=== PATIENT | female | born 1945 | race Hispanic/Latino ===

== ENCOUNTER → 2018-11-28 | Outpatient (CLI) | payer OTHER | END | disposition home or self-care (01) | LOC: RAH 09:02 | PROVIDERS: ATTEND Family Medicine | DX: Z12.31 Encounter for screening mammogram for malignant neoplasm of breast (principal) | CPT/HCPCS: 77067 ==

== ENCOUNTER → 2020-05-15 | Outpatient (CLI) | payer OTHER | END | disposition home or self-care (01) | LOC: RAH 10:36 | PROVIDERS: ATTEND Family Medicine | DX: Z12.31 Encounter for screening mammogram for malignant neoplasm of breast (principal); N64.89 Other specified disorders of breast | CPT/HCPCS: 77067 ==

== ENCOUNTER → 2021-10-21 | Outpatient (CLI) | payer OTHER | END | disposition home or self-care (01) | LOC: RAH 12:27 | PROVIDERS: ATTEND Family Medicine | DX: Z12.31 Encounter for screening mammogram for malignant neoplasm of breast (principal); R92.1 Mammographic calcification found on diagnostic imaging of breast | CPT/HCPCS: 77067 ==

== ENCOUNTER 2022-07-22 00:21 | Emergency (ER) | payer OTHER ==
[~2022-07-22] VITALS: Ht 157.5 cm; Wt 45.4 kg
[2022-07-22 01:14] LABS: BASOPHILS % (AUTO) 0.5 % (0.0-5.0); EOSINOPHILS % (AUTO) 0.5 % (0.0-8.0); HEMATOCRIT 25.5 % (36-48); LYMPHOCYTES % (AUTO) 8.7 % (21.0-51.0); MEAN CORPUSCULAR HEMOGLOBIN 30.4 pg (27.0-33.0); MEAN CORPUSCULAR HGB CONC 32.5 g/dL (32.0-36.0); MEAN CORPUSCULAR VOLUME 93.4 fL (79-99); MONOCYTES % (AUTO) 4.5 % (3.0-13.0); NEUTROPHILS % (AUTO) 85.3 % (40.0-77.0); PLATELET COUNT (AUTO) 338 K/uL (130-400); RED BLOOD CELL COUNT(AUTO) 2.73 MIL/uL (4.00-5.50); RED CELL DISTRIBUTION WIDTH 16.2 % (11.0-15.5); WHITE BLOOD COUNT (AUTO) 13.1 K/uL (4.8-10.8)
[2022-07-22 01:21] LABS: CREATININE 1.5 mg/dL (0.5-1.5); POTASSIUM 3.4 mmol/L (3.5-5.1)
[2022-07-22 01:26] LABS: ALBUMIN 3.1 g/dL (3.5-5.0); TOTAL PROTEIN, SERUM 6.4 g/dL (6.0-8.3)
[2022-07-22 01:33] LABS: APPEARANCE,URINE CLEAR (CLEAR); BILIRUBIN,URINE NEGATIVE (NEGATIVE); COLOR,URINE LIGHT-YELLOW (YELLOW); GLUCOSE, URINE (UA) NEGATIVE (NEGATIVE); KETONES,URINE 5 mg/dL (NEGATIVE); LEUKOCYTE ESTERASE ,URINE NEGATIVE Leu/uL (NEGATIVE); NITRATE,URINE NEGATIVE (NEGATIVE); OCCULT BLOOD,URINE NEGATIVE (NEGATIVE); PROTEIN,URINE 20 mg/dL (NEGATIVE); UROBILINOGEN,URINE 0.2 mg/dL (0.2-1.0)
[2022-07-22 01:36] LABS: MUCUS,URINE RARE LPF (None Seen); RBC,URINE 0-1 /HPF (0-1); SQUAMOUS EPITHELIAL CELL,UR RARE /HPF (0-2)
[2022-07-22] MEDS ORDERED: ONDANSETRON 4MG INJ IVP ONE (02:30)
[2022-07-22 04:46] VITALS: BP 138/44
[2022-07-22] MEDS ORDERED: FAMO-136 PO (06:07)
[2022-07-22] MEDS ORDERED: ONDA22I IM (06:07)
== END 2022-07-22 06:26 | disposition home or self-care (01) ==
LOC: EDH 00:21
DX: A08.4 Viral intestinal infection, unspecified (principal); K29.70 Gastritis, unspecified, without bleeding; E11.9 Type 2 diabetes mellitus without complications; E78.00 Pure hypercholesterolemia, unspecified; I10 Essential (primary) hypertension; Z86.73 Personal history of transient ischemic attack (TIA), and cerebral infarction without residual deficits
CPT/HCPCS: 99284; 96374; 84484; 80053; 83690; 85025; 81001; 36415; 93005; J2405

== ENCOUNTER → 2022-07-28 | Outpatient (CLI) | payer OTHER ==
[~2022-07-28] MED LIST: FAMO-136 PO; ONDA22I IM
== END | disposition home or self-care (01) ==
LOC: RAH 11:07
PROVIDERS: ATTEND Family Medicine
DX: I65.23 Occlusion and stenosis of bilateral carotid arteries (principal)
CPT/HCPCS: 93880

== ENCOUNTER → 2023-01-15 | Outpatient (CLI) | payer OTHER | END | disposition home or self-care (01) | LOC: RAH 13:44 | PROVIDERS: ATTEND Family Medicine | DX: Z12.31 Encounter for screening mammogram for malignant neoplasm of breast (principal) | CPT/HCPCS: 77067 ==

== ENCOUNTER → 2023-02-20 | Outpatient (CLI) | payer OTHER | END | disposition home or self-care (01) | LOC: SHCH 13:35 | PROVIDERS: ATTEND Internal Medicine Cardiovascular Disease | DX: I08.3 Combined rheumatic disorders of mitral, aortic and tricuspid valves (principal) | CPT/HCPCS: 93306 ==

== ENCOUNTER → 2023-02-26 | Outpatient (CLI) | payer OTHER | END | disposition home or self-care (01) | LOC: RAH 11:05 | PROVIDERS: ATTEND Internal Medicine Cardiovascular Disease | DX: R93.1 Abnormal findings on diagnostic imaging of heart and coronary circulation (principal); I25.10 Atherosclerotic heart disease of native coronary artery without angina pectoris | CPT/HCPCS: 75571 ==

== ENCOUNTER → 2023-02-27 | Outpatient (CLI) | payer OTHER | END | disposition home or self-care (01) | LOC: SHCH 14:31 | PROVIDERS: ATTEND Internal Medicine Cardiovascular Disease | DX: I65.23 Occlusion and stenosis of bilateral carotid arteries (principal) | CPT/HCPCS: 93880 ==

== ENCOUNTER 2023-06-11 10:05 | Observation (INO) | payer OTHER ==
[~2023-06-11] VITALS: Ht 157.5 cm; Wt 48.5 kg
[2023-06-11 11:05] LABS: BASOPHILS # (AUTO) 0.04 K/uL (0.00-0.20); BASOPHILS % (AUTO) 0.5 % (0.0-5.0); EOSINOPHILS # (AUTO) 0.18 K/uL (0.00-0.70); EOSINOPHILS % (AUTO) 2.1 % (0.0-8.0); IMMATURE GRANULOCYTE ABSOLUTE 0.03 K/uL (0-1); LYMPHOCYTES # (AUTO) 1.1 K/uL (1.0-4.8); LYMPHOCYTES % (AUTO) 13.2 % (21.0-51.0); MEAN CORPUSCULAR HEMOGLOBIN 30.6 pg (27.0-33.0); MEAN CORPUSCULAR HGB CONC 31.9 g/dL (32.0-36.0); MEAN CORPUSCULAR VOLUME 95.9 fL (79-99); MONOCYTES # (AUTO) 0.7 K/uL (0.1-1.0); MONOCYTES % (AUTO) 7.6 % (3.0-13.0); NEUTROPHILS # (AUTO) 6.5 K/uL (1.8-7.7); NEUTROPHILS % (AUTO) 76.2 % (40.0-77.0); PLATELET COUNT (AUTO) 297 K/uL (130-400); RED BLOOD CELL COUNT(AUTO) 1.93 MIL/uL (4.00-5.50); RED CELL DISTRIBUTION WIDTH 15.5 % (11.0-15.5); WHITE BLOOD COUNT (AUTO) 8.6 K/uL (4.8-10.8)
[2023-06-11 11:17] LABS: CREATININE 1.4 mg/dL (0.5-1.5); POTASSIUM 4.8 mmol/L (3.5-5.1)
[2023-06-11 11:21] LABS: HEMATOCRIT 18.5 % (36-48)
[2023-06-11 11:22] LABS: ALBUMIN 2.6 g/dL (3.5-5.0); BILIRUBIN,TOTAL 0.8 mg/dL (0.2-1.0); TOTAL PROTEIN, SERUM 6.1 g/dL (6.0-8.3)
[2023-06-11] MEDS ORDERED: MEMA5TAB42 PO (12:41)
[2023-06-11] MEDS ORDERED: FOLI1 PO (12:41)
[2023-06-11] MEDS ORDERED: ATOR40TA69 PO (12:41)
[2023-06-11] MEDS ORDERED: CARV25TA PO (12:41)
[2023-06-11] MEDS ORDERED: FLUO40CA49 PO (12:41)
[2023-06-11] MEDS ORDERED: LACTULOSE 20 GM/30 ML UDCUP PO PRN (14:30)
[2023-06-11] MEDS ORDERED: LIDOCAINE HCL 2% VISCOUS 30 ML, MAG/ALUM/SIMETH 30ML 30 ML, DICYCLOMINE HCL 20 MG PO PRN ×3 (14:30)
[2023-06-11] MEDS ORDERED: LOPERAMIDE HCL 2 MG CAP PO PRN (14:30)
[2023-06-11] MEDS ORDERED: DIPHENHYDRAMINE HCL 25 MG CAPSULE PO PRN (14:30)
[2023-06-11] MEDS ORDERED: MAGNESIUM 2GM PREMIX 50ML 50 ML IV PRN (14:30)
[2023-06-11] MEDS ORDERED: GUAIFENESIN SUGAR-FREE 100 MG/5 ML UDCUP PO PRN (14:30)
[2023-06-11] MEDS ORDERED: POTASSIUM CHLORIDE 10% ELIXIR 20 MEQ/15 ML UDCUP PO PRN (14:30)
[2023-06-11] MEDS ORDERED: DEXTROSE 50%-WATER 50 ML DISP.SYRIN IV PRN (14:30)
[2023-06-11] MEDS ORDERED: DOCUSATE SODIUM 100 MG CAP PO PRN (14:30)
[2023-06-11] MEDS ORDERED: NITROGLYCERIN 0.4 MG SL TAB SL PRN (14:30)
[2023-06-11] MEDS ORDERED: KCL 20 MEQ ERTAB PO PRN (14:30)
[2023-06-11] MEDS ORDERED: ALPRAZOLAM 0.5 MG TABLET PO PRN (14:30)
[2023-06-11] MEDS ORDERED: ACETAMINOPHEN 325 MG TAB PO PRN ×2 (14:30)
[2023-06-11] MEDS ORDERED: ZOLPIDEM TARTRATE 5 MG TAB PO PRN (14:30)
[2023-06-11] MEDS ORDERED: ARTIFICAL TEARS SOL 15 ML OP PRN (14:30)
[2023-06-11] MEDS ORDERED: ONDANSETRON 4MG INJ IV PRN (14:30)
[2023-06-11] MEDS ORDERED: BENZOCAINE/MENTH/CETYLPYRD CL 1 EACH LOZENGE MM PRN (14:30)
[2023-06-11] MEDS ORDERED: GUAIFENESIN-DM 200/20 MG 10 ML PO PRN (14:30)
[2023-06-11] MEDS ORDERED: GLUCAGON 1MG KIT 1 MG ML IM PRN (14:30)
[2023-06-11] MEDS ORDERED: POTASSIUM CHLORIDE 20MEQ/100ML 100 ML IV PRN (14:30)
[2023-06-11] MEDS ORDERED: MAG/ALUM/SIMETH 30 ML UDCUP PO PRN (14:30)
[2023-06-11] MEDS ORDERED: POLYETHYLENE GLYCOL 3350 17 GM POWD.PACK PO PRN (14:30)
[2023-06-11] MEDS ORDERED: COMPOUND PO MISCELLANEOUS 1 EACH MISC MISC PRN (15:30)
[2023-06-11 16:00] VITALS: BP 113/47; PULSE 82; RESP 20
[2023-06-11 19:50] LABS: HEMATOCRIT 26.9 % (36-48)
[2023-06-11 20:00] VITALS: BP 156/43; PULSE 90; RESP 20
[2023-06-11] MEDS ORDERED: FAMOTIDINE 20MG TAB PO SCH (21:00)
[2023-06-12] VITALS: BP 161/42; PULSE 76; RESP 18
[2023-06-12 04:00] VITALS: BP 158/46; PULSE 69; RESP 16
[2023-06-12 05:13] LABS: HEMATOCRIT 26.2 % (36-48)
[2023-06-12 07:59] VITALS: BP 148/39; PULSE 70; RESP 16
[2023-06-12 08:00] VITALS: O2SAT 96
[2023-06-12 08:10] LABS: HEMATOCRIT 27.7 % (36-48)
[2023-06-12] MEDS ORDERED: PANTOPRAZOLE 40 MG TAB DR PO SCH (09:00)
[2023-06-12 11:32] VITALS: BP 140/52; PULSE 72; RESP 18
[2023-06-12] MEDS ORDERED: FAMOTIDINE 20MG TAB PO SCH (21:00)
[2023-06-12] MEDS ORDERED: MEMANTINE HCL 5 MG TABLET PO SCH (21:00)
[2023-06-13] MEDS ORDERED: FOLIC ACID 1 MG TABLET PO SCH (09:00)
[2023-06-13] MEDS ORDERED: CARVEDILOL 25 MG TABLET PO SCH (09:00)
[2023-06-13] MEDS ORDERED: FLUOXETINE HCL 20 MG CAPSULE PO SCH (09:00)
[2023-06-13] MEDS ORDERED: ATORVASTATIN 40 MG TABLET PO SCH (09:00)
== END 2023-06-12 16:50 | disposition home or self-care (01) ==
LOC: EDH 10:05 → EDHIP 14:04 → 3AH 15:25
PROVIDERS: ADMIT Internal Medicine Critical Care Medicine; ATTEND Internal Medicine Critical Care Medicine
DX: S30.0XXA Contusion of lower back and pelvis, initial encounter (principal); D64.9 Anemia, unspecified; I12.9 Hypertensive chronic kidney disease with stage 1 through stage 4 chronic kidney disease, or unspecified chronic kidney disease; E11.22 Type 2 diabetes mellitus with diabetic chronic kidney disease; N18.9 Chronic kidney disease, unspecified; E78.00 Pure hypercholesterolemia, unspecified; Z86.73 Personal history of transient ischemic attack (TIA), and cerebral infarction without residual deficits; W19.XXXA Unspecified fall, initial encounter; Y93.89 Activity, other specified; Y92.89 Other specified places as the place of occurrence of the external cause; Y99.8 Other external cause status
CPT/HCPCS: 36430; 99284; 80053; 85025; 85014 ×3; 85018 ×3; 86850; 86900; 86901; 86923 ×2; 36415 ×2; 74176; G0378 ×23; P9016 ×2

== ENCOUNTER → 2024-03-31 | Outpatient (CLI) | payer OTHER ==
[~2024-03-31] MED LIST changes: +ATOR40TA69 PO; +CARV25TA PO; +FLUO40CA49 PO; +FOLI1 PO; +MEMA5TAB16 PO
== END | disposition home or self-care (01) ==
LOC: RAH 11:29
PROVIDERS: ATTEND Family Medicine
DX: Z12.31 Encounter for screening mammogram for malignant neoplasm of breast (principal); R92.30 Dense breasts, unspecified
CPT/HCPCS: 77067

== ENCOUNTER 2024-09-28 12:21 | Observation (INO) | payer OTHER ==
[~2024-09-28] VITALS: Ht 157.5 cm; Wt 59.0 kg
[2024-09-28 13:17] LABS: BASOPHILS # (AUTO) 0.05 K/uL (0.00-0.20); BASOPHILS % (AUTO) 0.6 % (0.0-5.0); EOSINOPHILS # (AUTO) 0.22 K/uL (0.00-0.70); EOSINOPHILS % (AUTO) 2.5 % (0.0-8.0); HEMATOCRIT 30.3 % (36-48); IMMATURE GRANULOCYTE ABSOLUTE 0.02 K/uL (0-1); LYMPHOCYTES # (AUTO) 2.3 K/uL (1.0-4.8); LYMPHOCYTES % (AUTO) 26.4 % (21.0-51.0); MEAN CORPUSCULAR HEMOGLOBIN 31.5 pg (27.0-33.0); MEAN CORPUSCULAR VOLUME 98.4 fL (79-99); MONOCYTES # (AUTO) 0.7 K/uL (0.1-1.0); MONOCYTES % (AUTO) 7.8 % (3.0-13.0); NEUTROPHILS # (AUTO) 5.6 K/uL (1.8-7.7); NEUTROPHILS % (AUTO) 62.5 % (40.0-77.0); PLATELET COUNT (AUTO) 278 K/uL (130-400); RED BLOOD CELL COUNT(AUTO) 3.08 MIL/uL (4.00-5.50); RED CELL DISTRIBUTION WIDTH 16.1 % (11.0-15.5); WHITE BLOOD COUNT (AUTO) 8.9 K/uL (4.8-10.8)
[2024-09-28 13:24] LABS: CARBON DIOXIDE 31 mmol/L (21-32); CHLORIDE 106 mmol/L (101-111); CREATININE 1.3 mg/dL (0.5-1.0); GLOMERULAR FILTR. RATE CALC 42 mL/min (>90); GLUCOSE,RANDOM 107 mg/dL (70-105); POTASSIUM 4.7 mmol/L (3.5-5.1); SODIUM SERUM 141 mmol/L (136-145); UREA NITROGEN, BLOOD 25 mg/dL (7-18)
[2024-09-28 13:29] LABS: AMMONIA < 10 umol/L (11-32)
[2024-09-28 13:32] LABS: CREATINE KINASE, TOTAL 20 U/L (21-232)
--- NOTE | 2024-09-28 13:35 | HMCIMG ---
Exam Type: CT HEAD/BRAIN W/O CONTRAST Clinical Information: weakness Comparison: None CT Dose Index (CTDI): 57.33 mGy Dose Length Product (DLP): 956.79 total mGy-cm Findings: The examination shows atrophy. There is low attenuation throughout the periventricular white matter locations, consistent with chronic small vessel ischemic changes. In addition, there is is evidence of an old infarct manifesting as encephalomalacia of the left parietal lobe. No acute intra- or extra-axial fluid collections are seen. There is no evidence of acute or chronic hemorrhage. There is no mass effect or shift of midline structures. The skull windows show no significant abnormalities. IMPRESSION: 1. ATROPHY AND CHRONIC ISCHEMIC CHANGES. This study was performed using dose reduction techniques to include automated exposure control and/or adjustment of the mA and/or kV according to patient size.
--- NOTE | 2024-09-28 13:39 | EKG ---
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
[2024-09-28 14:01] LABS: B-TYPE NATRIURETIC PEPTIDE 214 pg/mL (0-100)
--- NOTE | 2024-09-28 15:23 | ERN ---
General Chief Complaint: Weakness Stated Complaint: GBW Time Seen by MD: 12:53 History of Present Illness Initial Comments 78-year-old female who presents for weakness. Patient is wheelchair-bound due to a stroke in the past. Usually she was able to move around to the restroom, but the daughter reports today she reports extreme fatigue and weakness. No fevers vomiting diarrhea dysuria or other symptoms. Allergies: Coded Allergies: No Known Allergies (Unverified Allergy, Unknown, 07/22/22) Home Meds Active Scripts Ondansetron HCl (Zofran) 2 Mg/Ml Inj, 4 MG IM BID for 2 Days, #4 ML Prov:JORGE CHURCH MD 07/22/22 Famotidine (Pepcid) 20 Mg Tablet, 20 MG PO BID for 30 Days, #60 TAB Prov:JORGE CHURCH MD 07/22/22 Reported Medications Carvedilol (Carvedilol) 25 Mg Tablet, 25 MG PO DAILY, TAB 06/11/23 Atorvastatin Calcium (LIPITOR) 40 Mg Tablet, 40 MG PO DAILY, TAB 06/11/23 Fluoxetine HCl (Fluoxetine HCl) 40 Mg Capsule, 40 MG PO DAILY, CAP 06/11/23 Folic Acid (Folvite) 1 Mg Tab, 1 MG PO DAILY, TAB 06/11/23 Memantine HCl (Memantine HCl) 5 Mg Tablet, 5 MG PO BID, TAB 06/11/23 Past Medical History Past Medical History: CVA, Diabetes-Type II, High Cholesterol, Hypertension, Stroke Past Surgical History: None Surgical History Other: LUMPECTOMY, EYE SURGERY, CAROIDECTOMY Social History Social History: Negative, Lives with family, Other ROS Dictation CONSTITUTIONAL: Weakness and fatigue and malaise HEAD/FACE: No signs of trauma. EENT: No eye pain, no blurred vision, no tearing, no double vision, no ear pain, no ear discharge, no nose pain, no nasal congestion, no throat pain, no throat swelling, no mouth pain. RESPIRATORY: No cough, no orthopnea, no SOB, no stridor, no wheezing. CARDIOVASCULAR: No chest pain, no edema, no palpitations, no syncope. GASTROINTESTINAL/ABDOMINAL: No abdominal pain, no constipation, no diarrhea, no nausea, no vomiting. GENITOURINARY: No abnormal discharge, no dysuria, no frequent urination, no hematuria. No complaints of pain in the genitals. MUSCULOSKELETAL: No back pain, no gout, no joint pain, no joint swelling, no muscle pain, no muscle stiffness, no neck pain. INTEGUMENTARY: No change in color, no change in hair/nails, no dryness, no lesion, no lumps, no rash. NEUROLOGICAL/PSYCH: No anxiety, not depressed, no emotional problem, no headache, no numbness, no pre-existing deficit, no history of seizures, no tremors, no weakness. HEMATOLOGIC/LYMPHATIC: Not anemic, no history of blood clots, no apparent bleeding, no bruising, glands not swollen. All Systems Negative, Except as Noted. Physical Exam Physical Exam Dictation VITAL SIGNS: Reviewed. GENERAL APPEARANCE: Alert, oriented x3, no acute distress, wheelchair-bound, chronic right-sided weakness HEAD AND FACE: Non-traumatic. EYES: PERRL, pink conjunctivas, eyelid no trauma, anterior chamber clear. EARS: Pinnas intact and no signs of trauma or erythema. Ear canals clear and no discharge. TMs no erythema. NOSE: No discharge, no bleeding. OROPHARYNX: Mouth normal, teeth no caries, tongue pink. Pharynx clear, no erythema. Tonsils no exudates, no abscesses noted. Mucous membrane moist. NECK: Supple, non-tender, no thyromegaly, no masses, no JVD, no bruits. BREAST: Deferred. CHEST: No tenderness, no crepitus, no paradoxical movement, no retractions. LUNGS: Clear, well-ventilated, symmetric, no rales, no wheezing, no rhonchi, no stridor, good breath sounds bilaterally. HEART: Regular rate, regular rhythm, no murmur, no gallops. VASCULAR: No peripheral edema. ABDOMEN: Soft, positive bowel sounds, nondistended, no guarding, nontender, no rebound, no masses no hepatomegaly, no splenomegaly, no Hernandes's sign, no hernias. RECTAL: Deferred. GENITAL: Deferred. NEUROLOGICAL: Normal speech, gross motor function intact, gross sensory function intact. MUSCULOSKELETAL: Neck nontender, full range of motion, back nontender, full range of motion. EXTREMITIES: Nontender, full range of motion. SKIN: Color pink, dry, no turgor, no rash, no lacerations, no abrasions, no contusions. LYMPHATICS: Deferred. Results Laboratory and Microbiology Lab and Micro Result Laboratory Tests Test 09/28/24 13:08 09/28/24 18:30 White Blood Count 8.9 K/uL (4.8-10.8) Red Blood Count 3.08 MIL/uL (4.00-5.50) L Hemoglobin 9.7 g/dL (12.0-16.0) L Hematocrit 30.3 % (36-48) L Mean Corpuscular Volume 98.4 fL (79-99) Mean Corpuscular Hemoglobin 31.5 pg (27.0-33.0) Mean Corpuscular Hemoglobin Concent 32.0 g/dL (32.0-36.0) Red Cell Distribution Width 16.1 % (11.0-15.5) H Platelet Count 278 K/uL (130-400) Mean Platelet Volume 10.8 fL (7.5-10.5) H Immature Granulocyte % (Auto) 0.2 % (0-1) Neutrophils (%) (Auto) 62.5 % (40.0-77.0) Lymphocytes (%) (Auto) 26.4 % (21.0-51.0) Monocytes (%) (Auto) 7.8 % (3.0-13.0) Eosinophils (%) (Auto) 2.5 % (0.0-8.0) Basophils (%) (Auto) 0.6 % (0.0-5.0) Neutrophils # (Auto) 5.6 K/uL (1.8-7.7) Lymphocytes # (Auto) 2.3 K/uL (1.0-4.8) Monocytes # (Auto) 0.7 K/uL (0.1-1.0) Eosinophils # (Auto) 0.22 K/uL (0.00-0.70) Basophils # (Auto) 0.05 K/uL (0.00-0.20) Absolute Immature Granulocyte (auto 0.02 K/uL (0-1) Nucleated Red Blood Cells 0.0 % (0.0-0.19) Sodium Level 141 mmol/L (136-145) Potassium Level 4.7 mmol/L (3.5-5.1) Chloride Level 106 mmol/L (101-111) Carbon Dioxide Level 31 mmol/L (21-32) Blood Urea Nitrogen 25 mg/dL (7-18) H Creatinine 1.3 mg/dL (0.5-1.0) H Glomerular Filtration Rate Calc 42 mL/min (>90) Random Glucose 107 mg/dL (70-105) H Total Calcium 8.7 mg/dL (8.5-10.1) Ammonia < 10 umol/L (11-32) L Total Creatine Kinase 20 U/L (21-232) #L Troponin I High Sensitivity 20.4 ng/L (4-50) 22 ng/L (4-50) B-Type Natriuretic Peptide 214 pg/mL (0-100) H MDM CC: generalized weakness. While in the ED, she developed CP and dyspnea. Historain: patient Comobridities: previous CVA w/ L sided defecit, wheelchair bound, dementia, DM2, DLD, HTN Limitations by social determinates of health: none Ddx: ACS, electrolyte abnormality, infection, other. Complicated medical patient with complaint with broad differential diagnosis. VS: initial BP 176/49, otherwise stable. In ED patient had episodes of chest pain with elevated BP readings, as high as 210/64, consistent with hypertensive urgency. Re-evaluation: BP improved to 130/44 after treatment. Other VSS. Labs (independently interpreted by me): CBC shows normocytic anemia Hg 9.7, otherwise CBC normal. BMPShows normal electrolytes, creatinine 1.3 baseline for patient. Glucose stable. Ammonia stable. CK is stable. Troponin x2 normal. BNP 214. Urinalysis unremarkable. CXR (independently interpreted by me ): No cardiomegaly pleural effusions or focal infiltrates. CT head without contrast ( independently interpreted by me): No brain bleeds or major abnormalities. Chronic changes consistent with the age. Patient does have some mild dehydration based on clinical exam. Also elevated blood pressure readings with the chest pains concerning for possible hypertensive urgency. Treatment in ED: 1 L lactated Ringer's, 20 mg IV hydralazine for hypertension. While in the ER patient became very agitated and anxious, given 1 mg of IV Ativan. Reassessment: Patient on final re-evaluation is pain-free he was stable vital signs. Plan: We will admit for hypertensive urgency and observation. family agrees with the plan. Consultation: Hospitalist for admission ED Course Orders Procedure Category Date Status Time Lactated Ringers PHA 09/28/24 Complete 1000ml (Lactated 13:00 Ammonia LAB 09/28/24 Complete 12:57 Cardiac Panel LAB 09/28/24 Complete 12:57 Cbc With Differential LAB 09/28/24 Complete 12:57 Basic Metabolic Panel LAB 09/28/24 Complete 12:57 B-Type Natriuretic LAB 09/28/24 Complete Peptide 12:57 Urinalysis Profile LAB 09/28/24 Complete 12:57 12 Lead Ekg Tracing- EKG 09/28/24 Complete Technical 12:57 Ct Head/Brain W/O CT 09/28/24 Resulted Contrast 12:57 Hydralazine 20mg Inj PHA 09/28/24 Complete (Apresoline 20mg In 17:30 Hydralazine 20mg Inj PHA 09/28/24 Complete (Apresoline 20mg In 17:19 Lorazepam 2 Mg PHA 09/28/24 Complete (Ativan) 18:00 Chest 1vw RAD 09/28/24 Resulted 18:13 Troponin I High LAB 09/28/24 Complete Sensitivity 18:13 Current Medications Medications (Trade) Dose Ordered Sig/Niels Route PRN Reason Start Time Stop Time Status Last Admin Dose Admin Hydralazine HCl (APRESOLine 20MG INJ) 20 mg ONCE ONCE IV 09/28/24 17:30 09/28/24 17:31 DC 09/28/24 17:27 Hydralazine HCl (APRESOLine 20MG INJ) 20 mg STK-MED ONCE .ROUTE 09/28/24 17:19 09/28/24 17:20 DC Lactated Ringer's 1,000 ml @ 0 mls/hr ONCE ONCE IV 09/28/24 13:00 09/28/24 13:01 DC 09/28/24 16:52 Lorazepam (AtiVAN) 1 mg ONCE ONCE IVP 09/28/24 18:00 09/28/24 18:08 DC 09/28/24 18:21 Vital Signs Date Time Temp Pulse Resp B/P (MAP) Pulse Ox O2 Delivery O2 Flow Rate FiO2 09/28/24 18:00 95 16 175/64 99 Room Air* 0 21 09/28/24 17:00 98.1 95 16 210/64 98 Room Air* 0 21 09/28/24 12:23 98.6 63 20 176/49 99 0 DX & DISP Disposition: Inpatient Departure Impression: Primary Impression: Chest pain with high risk for cardiac etiology Additional Impressions: Hypertensive urgency, Dehydration Critical Time: 30 minutes (Critical Care Procedure NoteAuthorized and Performed by: meTotal critical care time: Approximately 36 minutesDue to a high probability of clinically significant, life threatening deterioration, the patient required my highest level of preparedness to intervene emergently and I personally spent this critical care time directly and personally managing the patient. This critical care time included obtaining a history; examining the patient; pulse oximetry; ordering and review of studies; arranging urgent treatment with development of a management plan; evaluation of patient's response to treatment; frequent reassessment; and, discussions with other providers.This critical care time was performed to assess and manage the high probability of imminent, life-threatening deterioration that could result in multi-organ failure. It was exclusive of separately billable procedures and treating other patients and teaching time.Please see MDM section and the rest of the note for further information on patient assessment and treatment.) Condition: Stable Referrals: LEAH ORTEGA MD (PCP) INES WU DO Sep 28, 2024 15:23
[2024-09-28] MEDS: LACTATED RINGERS 1000ML 1,000 ML IV ONE (16:52)
[2024-09-28] MEDS: hydrALAZine 20MG/ML VIAL IV ONE (17:27)
[2024-09-28] MEDS: hydrALAZine 20MG/ML VIAL ONE (17:27)
[2024-09-28] MEDS: LORazepam 2 MG/ML 1 ML VIAL IVP ONE (18:21)
--- NOTE | 2024-09-28 18:53 | HMCIMG ---
PORTABLE CHEST RADIOGRAPH INDICATION: chest pain COMPARISON: 07/05/2017 FINDINGS: cardiac monitor leads overlie the field of view. Heart size is normal. Mild calcific plaque is present along the aortic arch bolaños. The pulmonary vascularity and chandu appear normal. No abnormal pulmonary parenchymal opacity or consolidation identified. No significant pleural effusion noted. No pneumothorax detected. IMPRESSION: No radiographic evidence for any acute cardiopulmonary process.
[2024-09-28] MEDS ORDERED: acetaMINOPHEN 325 MG TAB PO PRN (19:00)
[2024-09-28] MEDS ORDERED: acetaMINOPHEN 650 MG SUPPOSITORY RC PRN (19:00)
[2024-09-28] MEDS ORDERED: HYDROcodone/APAP 5/325 1 TAB TABLET PO PRN ×3 (19:00→19:30)
[2024-09-28] MEDS ORDERED: ondanSETRON 4MG INJ IVP PRN (19:00)
[2024-09-28] MEDS ORDERED: LAbetaLOL 20MG SYG IV PRN (19:00)
[2024-09-28] MEDS ORDERED: ALBUTEROL 0.083% 2.5 MG/3 ML INH IH PRN (19:00)
[2024-09-28] MEDS ORDERED: hydrALAZine 20MG/ML VIAL IV PRN (19:00)
[2024-09-28 19:39] LABS: ADD UA MICROSCOPIC YES; APPEARANCE,URINE CLEAR (CLEAR); BILIRUBIN,URINE NEGATIVE (NEGATIVE); COLOR,URINE LIGHT-YELLOW (YELLOW); GLUCOSE, URINE (UA) NEGATIVE (NEGATIVE); KETONES,URINE NEGATIVE (NEGATIVE); LEUKOCYTE ESTERASE ,URINE NEGATIVE Leu/uL (NEGATIVE); NITRATE,URINE NEGATIVE (NEGATIVE); OCCULT BLOOD,URINE NEGATIVE (NEGATIVE); PROTEIN,URINE 30 mg/dL (NEGATIVE); UROBILINOGEN,URINE 0.2 mg/dL (0.2-1.0)
[2024-09-28 19:41] LABS: MUCUS,URINE RARE LPF (None Seen); SQUAMOUS EPITHELIAL CELL,UR RARE /HPF (0-2)
[2024-09-28 20:30] VITALS: BP 137/49; TEMP 98.5; O2SAT 99
[2024-09-28 20:54] VITALS: PULSE 89; RESP 18; O2SAT 97
--- NOTE | 2024-09-28 20:54 | NUR ---
PATIENT AND HER SPOUSE AND DAUGHTER ARE KEEN FOR HER TO GO HOME INSTEAD. EXPLAINED THE RISK OF AMA, WITH UNSTABLE BP. -FULLY UNDERSTOOD THAT HOSPITAL IS NOT HEL LIABLE IF SOMETHING HAPPENED WITH THE PATIENT AT HOME. INFORMED ANDIE JOSEPH SECURED AMA CONSENT PROVIDED PT COPIES OF HER LAB TESTS AND IMAGING
[2024-09-28] MEDS: FAMOTIDINE 20MG TAB PO SCH (21:00)
[2024-09-28] MEDS: INSULIN humuLIN R 100 UNIT/ML 3ML SQ SCH (21:00)
[2024-09-29] MEDS ORDERED: ASCORBIC ACID 500 MG TAB PO SCH (09:00)
[2024-09-29] MEDS ORDERED: polyETHYLene GLYCol 3350 17 GM POWD.PACK PO SCH (09:00)
== END 2024-09-28 21:07 | disposition left against medical advice (07) ==
LOC: EDH 12:21 → EDHIP 18:52
PROVIDERS: ADMIT Internal Medicine Pulmonary Disease; ATTEND Internal Medicine Pulmonary Disease
DX: I16.0 Hypertensive urgency (principal); E86.0 Dehydration; R07.89 Other chest pain; E11.9 Type 2 diabetes mellitus without complications; E78.00 Pure hypercholesterolemia, unspecified; I10 Essential (primary) hypertension; Z86.73 Personal history of transient ischemic attack (TIA), and cerebral infarction without residual deficits; Z98.890 Other specified postprocedural states; Z79.899 Other long term (current) drug therapy; Z99.3 Dependence on wheelchair; Z79.84 Long term (current) use of oral hypoglycemic drugs
CPT/HCPCS: 96374; 96361; 96375; 82550; 84484 ×2; 80048; 83880; 82140; 85025; 82948; 81001; 36415; 71045; 70450; 99291; 93005; 94664; G0378 ×2; J0360; J2060